=== PATIENT | male | born 1950 | race Caucasian/White ===

== ENCOUNTER 2024-01-27 18:54 | Emergency (ER) | payer MEDICARE, OTHER ==
[2024-01-27] MEDS: Metoclopramide 5 MG Tab PO ONE (19:26)
[2024-01-27] MEDS: diphenhydrAMINE 25 MG Cap PO ONE (19:26)
[2024-01-27] MEDS: Acetaminophen/HYDROcodone 325-5 MG Tab PO ONE (19:26)
[2024-01-27] MEDS: amLODIPine 5 MG Tab PO ONE (19:28)
[2024-01-27 19:54] LABS: BASOPHILS ABSOLUTE AUTO 0.06 K/uL (0.00-0.20); BASOPHILS PERCENT AUTO 0.8 % (0.0-1.0); EOSINOPHILS PERCENT AUTO 3.8 % (0.0-6.0); HEMOGLOBIN 15.3 g/dL (14.0-18.0); IMMATURE GRAN ABSOLUTE AUTO 0.04 K/uL (0.00-0.05); IMMATURE GRAN PERCENT AUTO 0.5 % (0.0-0.4); LYMPHOCYTES ABSOLUTE AUTO 2.73 K/uL (1.00-4.80); LYMPHOCYTES PERCENT AUTO 34.9 % (24.0-44.0); MEAN CORPUSCULAR HEMOGLOBIN 32.3 pg (28.0-32.0); MEAN CORPUSCULAR HGB CONC 35.6 g/dL (32.0-36.0); MEAN CORPUSCULAR VOLUME 90.7 fL (83.0-99.0); MEAN PLATELET VOLUME 9.9 fL (9.4-12.4); MONOCYTES ABSOLUTE AUTO 0.96 K/uL (0.00-0.80); MONOCYTES PERCENT AUTO 12.3 % (0.0-8.0); NEUTROPHILS ABSOLUTE AUTO 3.74 K/uL (1.80-7.70); NEUTROPHILS PERCENT AUTO 47.7 % (41.0-71.0); PLATELET COUNT,PLT 207 K/uL (150-400); RED BLOOD CELL COUNT 4.74 M/uL (4.52-5.90); WHITE BLOOD CELL COUNT,WBC 7.83 K/uL (3.9-11.3)
[2024-01-27 20:18] LABS: A/G RATIO 1.3 (0.9-1.6); BILIRUBIN TOTAL 0.4 mg/dL (0.2-1.0); CALCIUM 8.8 mg/dL (8.5-10.1); CARBON DIOXIDE,CO2 26.2 mmol/L (21.0-32.0); CREATININE 1.4 mg/dL (0.8-1.3); EST CRCL DRUG DOSING (CG) 43.67 mL/min; POTASSIUM,K 4.4 mmol/L (3.5-5.1)
== END 2024-01-27 20:45 | disposition home or self-care (01) ==
LOC: MW.ED 18:54
DX: R51.9 Headache, unspecified (principal); I10 Essential (primary) hypertension; E78.00 Pure hypercholesterolemia, unspecified; Z79.899 Other long term (current) drug therapy; Z75.8 Other problems related to medical facilities and other health care
CPT/HCPCS: 36415; 70450; 80053; 85025; 99284; A9270